=== PATIENT | female | born 1980 | race Caucasian/White ===

== ENCOUNTER 2017-11-19 10:35 | Emergency (ER) | payer OTHER ==
[~2017-11-19] VITALS: Ht 162.6 cm; Wt 86.2 kg
[~2017-11-19 10:35] MED LIST: AMOXICILLIN500 MG PO; ESCITALOPRAM OX20 MG PO; IBUPROFEN600 M1 PO; LEVSIN/SL0.125 MG SL; NORCO 325 MG-51 TAB PO; PERCOCET 325 MG1 TA2 PO; PERCOCET 5-3251 EACH PO; PROAIR HFA8.5 GM INH; PROVENTIL0.09 MG/A1 PO; REGLAN10 MG PO; TORADOL10 MG PO; ZOFRAN ODT4 M1 SL; ZOFRAN4 M1 SL
--- NOTE | 2017-11-19 11:51 | ED SYNCOPE COMPLAINT ---
History of Present Illness General Chief Complaint: Syncope and Near-Syncope Stated Complaint: ?SYNCOPE Source: patient, family Exam Limitations: no limitations Vital Signs & Intake/Output Vital Signs & Intake/Output Vital Signs Date Time Temp Pulse Resp B/P B/P Pulse O2 O2 Flow FiO2 Mean Ox Delivery Rate 11/19 1531 98.4 72 15 126/53 99 Room Air Room Air 11/19 1449 69 20 116/73 98 Room Air 11/19 1342 98.6 76 18 115/73 98 Room Air 11/19 1214 98.2 71 20 130/72 99 Room Air 11/19 1047 98.4 90 18 125/86 98 Room Air Allergies Coded Allergies: No Known Allergies (05/10/17) Reconcile Medications Cyclobenzaprine HCl 10 MG TABLET 1 TAB PO TID SPASMS Ibuprofen 800 MG TABLET 1 TAB PO TID pain Methylprednisolone. (Medrol) 4 MG TAB.DS.PK 1 DP PO AD neck pain 6 on day 1 then reduce by one tablet daily until gone Oxycodone HCl/Acetaminophen (Percocet 5-325 MG Tablet) 5 MG-325 MG TABLET 1-2 TAB PO BID pain Triage Note: 36 YO FEMALE TO TRIAGE FOR EVAL OF +SYNCOPLE EPISODE WHILE HAVING A BM THIS AM. REPORTS HAS BEEN HAVING LOWER ABD CRAMPNIG AND +DIARRHEA FOR ABOUT A WEEK. STATES SHE GOT UP AND WHILE USING THE BATHROOM SHE PASSED OUT, UNSURE OF HEADSTRIKE. EKG COMPELTED ON ARRIVAL. PT C/O LWOER ABD CRAMPING NOW. DENIES DIZZINESS/CP/LIGHTHEADEDNESS. Triage Nurses Notes Reviewed? yes Timing: single episode today Precipitating Factors: lightheadedness Loss of Consciousness: brief (seconds) : No Patient currently breastfeeds: No HPI: 36-year-old female comes into the emergency room for further evaluation after having a syncopal episode and abdominal pain. The patient reports that she's been experiencing some left lower abdominal pain for last couple days. She denies any fever chills vomiting. Patient reports that this morning the cramping got a little bit worse and she went to use the bathroom at work. She was on the toilet using the bathroom when suddenly she became lightheaded dizzy sweating and tingling in her hands bilaterally and reports that she passed out. She denies any prior history of this happening. Denies any preceding chest pain or shortness of breath prior to the syncopal episode. She does admit that for the past month she's been experiencing intermittent left-sided chest pain. The pain will radiate down her left arm. She gets short of breath when going up pills. She denies any vomiting or diaphoresis. The pain is intermittent throughout the day. Last for about 45 minutes and then go away. (Spencer Saleem) Past History Travel History Traveled to [place] past 21 day No Medical History Any Pertinent Medical History? see below for history Neurological: migraine EENT: NONE Cardiovascular: NONE Respiratory: NONE Gastrointestinal: irritable bowel syndrome, BARRETTS ESPOHAGUS Hepatic: NONE Renal: NONE, nephrolithiasis, INTERCYSTAL CYSTITIS Musculoskeletal: NONE Psychiatric: anxiety, depression Endocrine: NONE Blood Disorders: NONE Cancer(s): NONE GROUP LEADER/Reproductive: ENDOMETRIOSIS Other Medical Hx: times 3, laparoscopic tubal sterilization, endometriosis, interstitial cystitis, multiple laparoscopies, cystoscopy, left oophorectomy, thermal ablation. PAST MEDICAL HISTORY: Anxiety, Pérez's esophagitis, gastroesophageal reflux disease, chronic pelvic pain. History of MRSA: No History of VRE: No History of CDIFF: No Surgical History Surgical History: partial hysterectomy, L oophorectomy, multiple exploratory laps Psychosocial History Who do you live with Family What is your primary language Kazakh Tobacco Use: Never used Family History Hx Contributory? No (Spencer Saleem) Review of Systems Review of Systems Constitutional: Reports: no symptoms. EENTM: Reports: no symptoms. Respiratory: Reports: no symptoms. Cardiovascular: Reports: see HPI. GI: Reports: see HPI. Genitourinary: Reports: no symptoms. Musculoskeletal: Reports: no symptoms. Skin: Reports: no symptoms. Neurological/Psychological: Reports: see HPI. All Other Systems: Reviewed and Negative (Spencer Saleem) Physical Exam Physical Exam General Appearance: well developed/nourished, no apparent distress, alert, awake Head: atraumatic, normal appearance Eyes: Bilateral: normal appearance, PERRL, EOMI. Ears, Nose, Throat: normal ENT inspection, hearing grossly normal Neck: normal inspection, full range of motion Respiratory: normal breath sounds, no respiratory distress Cardiovascular: regular rate/rhythm Gastrointestinal: soft, non-tender Back: normal inspection Extremities: normal inspection, normal range of motion, no edema Psychiatric: awake, alert, oriented x 3 Cranial Nerves: normal hearing, normal speech, PERRL Coordination/Gait: normal finger to nose, normal gait Motor/Sensory: no motor/sensory deficits Skin: intact, normal color Core Measures ACS in differential dx? No CVA/TIA Diagnosis: No Sepsis Present: No Sepsis Focused Exam Completed? No (Yang WONG,Spencer) Progress Differential Diagnosis: AMI, aortic dissection, aortic valve, drug induced syncope, hyperventilation, orthostatic syncope, other valvular disease, pulmonary embolus, seizure, sick sinus syndrome, subarachnoid hem., TIA/CVA, vasodepressor syncope, ventricular tach/fib, diverticulitis, small bowel obstruction, Plan of Care: Orders Procedure Date/time Status TROPONIN LEVEL 11/19 1435 Complete EKG 11/19 1435 Active Add-on Test (ER Only) 11/19 1158 Active D-DIMER 11/19 1139 Complete Telemetry/Seed Yeast Operator 11/19 1133 Active URINALYSIS 11/19 1133 Complete MISTAKE 11/19 1112 Active TROPONIN LEVEL 11/19 1112 Complete HUMAN BETA HCG SCREEN 11/19 1112 Complete COMPREHENSIVE METABOLIC PANEL 11/19 1112 Complete CBC WITHOUT DIFFERENTIAL 11/19 1112 Complete EKG 11/19 1036 Active Laboratory Tests 11/19/17 1635: Troponin I Cancelled 11/19/17 1433: Troponin I < 0.01 11/19/17 1144: Urine Color STRAW, Urine Clarity HAZY H, Urine pH 6.5, Ur Specific Weinert 1.010, Urine Protein NEG, Urine Ketones NEG, Urine Nitrite NEG, Urine Bilirubin NEG, Urine Urobilinogen 0.2, Ur Leukocyte Esterase NEG, Ur Microscopic SEDIMENT EXAMINED, Urine RBC RARE, Urine WBC RARE, Ur Epithelial Cells MANY H, Urine Bacteria FEW H, Urine Hemoglobin NEG, Urine Glucose NEG 11/19/17 1139: D-Dimer High Sensitivty < 200 11/19/17 1136: Anion Gap 9, Estimated GFR > 60, BUN/Creatinine Ratio 15.7, Glucose 81, Calcium 9.5, Total Bilirubin 0.6, AST 18, ALT 28, Alkaline Phosphatase 76, Troponin I < 0.01, Total Protein 7.1, Albumin 4.3, Globulin 2.8, Albumin/Globulin Ratio 1.5, Total Beta HCG NEGATIVE, CBC w Diff NO MAN DIFF REQ, RBC 4.66, MCV 87.5, MCH 30.8, MCHC 35.2, RDW 12.3, MPV 8.1, Gran % 58.6, Lymphocytes % 34.9, Monocytes % 5.3, Eosinophils % 0.7, Basophils % 0.5, Absolute Granulocytes 3.3, Absolute Lymphocytes 1.9, Absolute Monocytes 0.3, Absolute Eosinophils 0, Absolute Basophils 0 Diagnostic Imaging: Viewed by Me: Radiology Read, CT Scan. Discussed w/RAD: Radiology Read, CT Scan. Radiology Impression: PATIENT: CHASTITY BARAJAS PRESENT AGE: 36 PATIENT ACCOUNT NO: [id number] : 78 LOCATION: [facility] ORDERING PHYSICIAN: Spencer WONG SERVICE DATE: 11/19/17 EXAM TYPE : CAT - CT ABD & PELVIS W IV CONTRAST EXAMINATION: CT ABDOMEN AND PELVIS WITH CONTRAST CLINICAL INFORMATION: Left lower quadrant pain. Rule out diverticulitis. COMPARISON: MRI scan of the abdomen dated 01/15/2017. CT scan of the abdomen and pelvis dated 01/15/2017, 12/18/2016 and 09/29/2015. TECHNIQUE: Multidetector CT volumetric acquisition of the abdomen and pelvis was performed after the administration of 95 and mL of intravenous Optiray 320. The data set was reformatted in the sagittal and coronal planes and reviewed on an independent workstation. DLP: 492.16 mGy-cm. FINDINGS: LOWER CHEST: Included lung bases unremarkable. LIVER, GALLBLADDER, BILIARY TREE: Liver normal size and attenuation. There is a 1.3 x 0.6 cm cyst in segment 7 again seen, unchanged. No new hepatic mass noted. No intra-or extrahepatic ductal dilatation. Hepatic and portal veins patent. Gallbladder partially distended and within normal limits. PANCREAS: Normal. No ductal dilatation, mass, or surrounding stranding. SPLEEN: Normal size and appearance. Splenic vein patent. ADRENAL GLANDS AND KIDNEYS: Adrenal glands normal. Kidneys bilaterally symmetric in size and function. No focal mass, hydronephrosis, nephrolithiasis or perinephric stranding. URETERS AND BLADDER: Ureters decompressed and within normal limits. Bladder partially distended and within normal limits. PELVIC ORGANS: The patient is status post supracervical hysterectomy. Right ovary is normal. Left ovary is not seen. No suspicious left adnexal mass. GASTROINTESTINAL TRACT: The patient is status post Yulia fundoplication. Small and large bowel loops decompressed.. The descending colon and sigmoid colon are tortuous. No definite evidence of acute diverticulitis is seen. A few scattered colonic diverticula are noted. The terminal ileum is normal. The appendix is not discretely identified. ABDOMINAL WALL: There is a small fat-containing umbilical hernia. LYMPHOVASCULAR STRUCTURES: Abdominal aorta normal in caliber. No periaortic collections. No abdominal or pelvic adenopathy or free fluid collection. BONES: Within normal limits. IMPRESSION: 1. No acute intra-abdominal or pelvic process seen. 2. Postsurgical changes related to prior Yulia fundoplication, supracervical hysterectomy and possible left oophorectomy. 3. Small fat-containing umbilical hernia. 4. Stable small hepatic cyst. DICTATED BY: Eloise Tabor MD DATE/TIME DICTATED:11/19/171308 PLUMBING ASSEMBLER INSTALLER:SOLOMON DATE/TIME TRANSCRIBED:1308 CONFIDENTIAL, DO NOT COPY WITHOUT APPROPRIATE AUTHORIZATION. < Electronically signed in Other Vendor System> SIGNED BY: Eloise Tabor MD 11/19/17 1333, PATIENT: CHASTITY BARAJAS PRESENT AGE: 36 PATIENT ACCOUNT NO: [id number] : 78 LOCATION: [facility] ORDERING PHYSICIAN: Spencer WONG SERVICE DATE: 11/19/17 EXAM TYPE: RAD - XRY-CHEST XRAY, TWO VIEWS EXAMINATION: XR CHEST CLINICAL INFORMATION: Syncope. COMPARISON: Chest done on 05/10/2017. TECHNIQUE: 2 views of the chest were obtained. FINDINGS: No significant abnormality is noted involving the heart, lungs, bony thorax or soft tissues. Postsurgical changes are noted in the left epigastrium and within the middle mediastinal region. No significant change. IMPRESSION: No acute cardiopulmonary disease, unchanged since 05/10/2017. DICTATED BY: Kate Murrell MD DATE/TIME DICTATED:11/19/171326 PLUMBING ASSEMBLER INSTALLER: SOLOMON DATE/TIME TRANSCRIBED:11/19/171326 CONFIDENTIAL, DO NOT COPY WITHOUT APPROPRIATE AUTHORIZATION. <Electronically signed in Other Vendor System> SIGNED BY: Kate Murrell MD 11/19/17 4208 Initial ED EKG: normal sinus rhythm, rate (85), borderline t wave abnormalities Repeat EKG: unchanged Comments: 11/19/2017 5:21:34 PM Patient clinically looks well. Patient is in no apparent distress. The syncopal episode is most consistent with a vasovagal. Patient is to follow-up with PCP and GI doctor. Etiology of abdominal pain unclear at this time. She feels better on discharge. Lab work within normal limits. She understands and agrees a plan of care. She was reevaluated multiple times. Case discussed with Dr. saunders. Return if any other concerns worsening symptoms. Patient understands and agrees with plan of care. (Yang WONG,Spencer) Departure Departure Disposition: HOME OR SELF CARE Condition: Stable Clinical Impression Primary Impression: Syncope, vasovagal Secondary Impressions: Abdominal pain, Chest pain Referrals: Unknown (PCP/Family) Additional Instructions: Take Percocet, Flexeril, and Medrol Dosepak as prescribed. Follow-up with your primary care doctor. Follow-up with injection wax molder provided. Return if any other concerns worsening symptoms. Please go over all results of today's visit with your primary care doctor. Contact your primary care doctor to let them know you were here in the emergency room. There may be nonspecific findings which may not be related to your visit today here in the emergency room but may require further evaluation and chronic monitoring by your primary care doctor. If you had a laceration today the chance of foreign body always remains. You should follow-up with your primary care doctor for recheck in 3-5 days for a wound check. If you had an x-ray done there is a chance that a fracture could have been missed on initial read and you should follow-up with your primary care doctor for repeat x-rays if symptoms persist. If your blood pressure was elevated here in the emergency room please have rechecked by [facility] primary care doctor within the next 48. If you were prescribed a narcotic here in the emergency room or any type of controlled substances you're not allowed to drive while taking this medication or operate any type of heavy machinery. Narcotics can make you feel lightheaded dizziness nausea and can cause constipation. You may need to shredder picker a stool softener. Thank you for choosing [facility] emergency room. Please return to the emergency room immediately if you have any other concerns worsening of symptoms. Departure Forms: Customer Survey General Discharge Information Prescriptions: Current Visit Scripts Oxycodone HCl/Acetaminophen (Percocet 5-325 MG Tablet) 1-2 TAB PO BID #10 TAB Ibuprofen 1 TAB PO TID #60 TAB Methylprednisolone. (Medrol) 1 DP PO AD #1 DP 6 on day 1 then reduce by one tablet daily until gone Cyclobenzaprine HCl 1 TAB PO TID #30 TAB (Spencer Saleem) PA/COIN MACHINE COLLECTOR Co-Sign Statement Statement: ED Attending supervision documentation- x I saw and evaluated the patient. I have also reviewed all the pertinent lab results and diagnostic results. I agree with the findings and the plan of care as documented in the PA's/COIN MACHINE COLLECTOR's documentation. [] I have reviewed the ED Record and agree with the PA's/COIN MACHINE COLLECTOR's documentation. [] Additions or exceptions (if any) to the PAs/COIN MACHINE COLLECTOR's note and plan are summarized below: [] (Sandra WARNER,Darrius)
[2017-11-19 11:54] LABS: ABSOLUTE BASOPHIL COUNT 0 /CUMM (0.0-0.2); ABSOLUTE EOSINOPHIL COUNT 0 /CUMM (0.0-0.7); ABSOLUTE GRANULOCYTE CT 3.3 /CUMM (1.4-6.5); ABSOLUTE LYMPH COUNT 1.9 /CUMM (1.2-3.4); ABSOLUTE MONOCYTE COUNT 0.3 /CUMM (0.10-0.60); BASOPHIL % 0.5 % (0.0-2.0); EOSINOPHIL % 0.7 % (0-5); GRANULOCYTE % 58.6 % (42.2-75.2); HEMATOCRIT 40.8 % (37-47); MEAN CORPUSCULAR HGB 30.8 PG (27.0-31.0); MEAN CORPUSCULAR HGB CONC 35.2 G/DL (33.0-37.0); MEAN CORPUSCULAR VOLUME 87.5 FL (81.0-99.0); MEAN PLATELET VOLUME 8.1 FL (7.4-10.4); PLATELET COUNT 301 /CUMM (130-400); RBC DISTRIBUTION WIDTH 12.3 % (11.5-14.5); RED BLOOD CELL CT 4.66 /CUMM (4.20-5.40); WHITE BLOOD CELL COUNT 5.6 /CUMM (4.8-10.8)
--- NOTE | 2017-11-19 13:33 | CT SCAN REPORT ---
EXAMINATION: CT ABDOMEN AND PELVIS WITH CONTRAST CLINICAL INFORMATION: Left lower quadrant pain. Rule out diverticulitis. COMPARISON: MRI scan of the abdomen dated 01/15/2017. CT scan of the abdomen and pelvis dated 01/15/2017, 12/18/2016 and 09/29/2015. TECHNIQUE: Multidetector CT volumetric acquisition of the abdomen and pelvis was performed after the administration of 95 and mL of intravenous Optiray 320. The data set was reformatted in the sagittal and coronal planes and reviewed on an independent workstation. DLP: 492.16 mGy-cm. FINDINGS: LOWER CHEST: Included lung bases unremarkable. LIVER, GALLBLADDER, BILIARY TREE: Liver normal size and attenuation. There is a 1.3 x 0.6 cm cyst in segment 7 again seen, unchanged. No new hepatic mass noted. No intra-or extrahepatic ductal dilatation. Hepatic and portal veins patent. Gallbladder partially distended and within normal limits. PANCREAS: Normal. No ductal dilatation, mass, or surrounding stranding. SPLEEN: Normal size and appearance. Splenic vein patent. ADRENAL GLANDS AND KIDNEYS: Adrenal glands normal. Kidneys bilaterally symmetric in size and function. No focal mass, hydronephrosis, nephrolithiasis or perinephric stranding. URETERS AND BLADDER: Ureters decompressed and within normal limits. Bladder partially distended and within normal limits. PELVIC ORGANS: The patient is status post supracervical hysterectomy. Right ovary is normal. Left ovary is not seen. No suspicious left adnexal mass. GASTROINTESTINAL TRACT: The patient is status post Yulia fundoplication. Small and large bowel loops decompressed.. The descending colon and sigmoid colon are tortuous. No definite evidence of acute diverticulitis is seen. A few scattered colonic diverticula are noted. The terminal ileum is normal. The appendix is not discretely identified. ABDOMINAL WALL: There is a small fat-containing umbilical hernia. LYMPHOVASCULAR STRUCTURES: Abdominal aorta normal in caliber. No periaortic collections. No abdominal or pelvic adenopathy or free fluid collection. BONES: Within normal limits. IMPRESSION: 1. No acute intra-abdominal or pelvic process seen. 2. Postsurgical changes related to prior Yulia fundoplication, supracervical hysterectomy and possible left oophorectomy. 3. Small fat-containing umbilical hernia. 4. Stable small hepatic cyst.
--- NOTE | 2017-11-19 13:33 | RADIOLOGY REPORT ---
EXAMINATION: XR CHEST CLINICAL INFORMATION: Syncope. COMPARISON: Chest done on 05/10/2017. TECHNIQUE: 2 views of the chest were obtained. FINDINGS: No significant abnormality is noted involving the heart, lungs, bony thorax or soft tissues. Postsurgical changes are noted in the left epigastrium and within the middle mediastinal region. No significant change. IMPRESSION: No acute cardiopulmonary disease, unchanged since 05/10/2017.
[2017-11-19] MEDS ORDERED: MEDROL4 M2 PO (14:09)
[2017-11-19] MEDS ORDERED: IBUPROFEN800 M1 PO (14:09)
[2017-11-19] MEDS ORDERED: PERCOCET 5-3251 EACH PO (14:09)
[2017-11-19] MEDS ORDERED: CYCLOBENZAPRINE10 M1 PO (14:09)
[2017-11-19 15:31] VITALS: BP 126/53
== END 2017-11-19 16:34 ==
LOC: ERH 10:35
PROVIDERS: Physician Assistant Medical
DX: R55 Syncope and collapse (principal); R10.30 Lower abdominal pain, unspecified; R19.7 Diarrhea, unspecified; F41.9 Anxiety disorder, unspecified; F32.9 Major depressive disorder, single episode, unspecified
CPT/HCPCS: 71046; 74177; 81001; 93005; 93010; 96374; 96375; 96376; J1885